=== PATIENT | male | born 2000 | race Caucasian/White ===

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

== ENCOUNTER 2024-11-15 13:30 | Emergency (ER) | payer SELFPAY ==
[2024-11-15] VITALS (7 sets, daily range): BP systolic 106–121; BP diastolic 59–89; PULSE 69–88; RESP 14–16; TEMP 36.4; O2SAT 96–100
--- NOTE | 2024-11-15 14:55 | CTR_ITS ---
PROCEDURE INFORMATION: Exam: CT Head Without Contrast Exam date and time: 11/15/2024 3:00 PM Age: 24 years old Clinical indication: Pain; Patient HX: Headache x 4hrs TECHNIQUE: Imaging protocol: Computed tomography of the head without contrast. Radiation optimization: All CT scans at this facility use at least one of these dose optimization techniques: automated exposure control; mA and/or kV adjustment per patient size (includes targeted exams where dose is matched to clinical indication); or iterative reconstruction. COMPARISON: No relevant prior studies available. RADIATION DOSE METRICS: Total DLP (mGy-cm): 1047.94 FINDINGS: Brain: No definite evidence for acute infarct. Normal enamorado-white matter interfaces. No focal mass lesions. No intra-axial or extra-axial fluid collections, hemorrhage or mass. No mass effect or midline shift. The pineal, sellar, brainstem, cerebellum regions appear grossly unremarkable. Cerebral ventricles: No ventriculomegaly. Paranasal sinuses: Visualized sinuses are unremarkable. No fluid levels. Mastoid air cells: Visualized mastoid air cells are unremarkable without effusion. Bones: Unremarkable. No acute fracture. Soft tissues: Unremarkable. Vasculature: Unremarkable. CT/CT head wo con* [id number] IMPRESSION: No acute intracranial abnormality.
--- NOTE | 2024-11-15 15:12 | ED_ITS ---
HPI - General Adult 2 General: Chief complaint: General Medical Stated complaint: stroke like symptoms Time Seen by Provider: 11/15/24 14:36 Source: patient Mode of arrival: ambulatory Limitations: no limitations History of Present Illness: 24-year-old male states he started havin g a headache 2 hours ago states been a pressure type headache states when he first had a headache he started have some blurred vision also some right sided numbness he states the vision numbness is resolved but his headache has worsened it is currently 9 out of 10 its gradually worsening does have some photophobia no known history of migraines. Associated symptoms: Reports headache(s); Deny chest pain, dyspnea, nausea, rash or vomiting Related Data Home Medications Medication Instructions Recorded Confirmed No Known Home Medications 10/17/21 11/15/24 Allergies Allergy/AdvReac Type Severity Reaction Status Date / Time No Known Allergies Allergy Unverified 10/17/21 11:24 Review of Systems 2 Const: Denies: fever(s), chills, body aches or change in appetite Eyes: Reports: blurry vision ENMT: Denies: throat pain or dental pain Card: Denies: chest pain Resp: Denies: dyspnea GI: Denies: abdominal pain, nausea, vomiting or diarrhea Musc: Denies: neck pain or back pain Skin/Breast: Denies: rash Neuro: Reports: headache(s) and numbness in extremities Physical Exam 2 Const: COMMON NORMALS: no acute distress, patient oriented x3 and healthy appearing HENMT: COMMON NORMALS: normocephalic and atraumatic HEAD & SCALP: n ormocephalic and atraumatic Eye: COMMON NORMALS: Equal, round and reactive pupils present and EOMs intact bilaterally PUPIL: Yes Equal, round and reactive pupils present Neck/C-Spine: COMMON NORMALS: full ROM and supple Chest: COMMONS NORMALS: normal inspection of the chest and normal palpation of entire chest wall Resp: COMMON NORMALS: normal respiratory effort, No retractions, No use of accessory muscles and clear to auscultation bilaterally AUSCULTATION: clear to auscultation bilaterally Cardio: COMMON NORMALS: regular rate, regular rhythm and No murmurs present (Cardio) RATE: regular rate RHYTHM: regular rhythm GI: COMMON NORMALS: Normal to inspection, nondistended, normoactive bowel sounds present, Soft to palpation, non-tender and no masses PALPATION: Yes Soft to palpation Extremity: COMMON NORMALS: normal to inspection and full ROM Neuro: COMMON NORMALS: patient oriented x3, moves all extremities and no focal motor deficits Psych: COMMON NORMALS: mental status grossly normal, Normal thought process present and cooperative THOUGHT PROCESS: Normal thought process present Skin: COMMON NORMALS: no rashes or lesions noted and no wounds GENERAL SKIN EXAM: no rashes or lesions noted Course 2 Vital Signs: Vital signs: Vital Signs Temperature 97.6 F 11/15/24 13:34 Pulse Rate 88 11/15/24 16:19 Respiratory Rate 16 11/15/24 16:43 Blood Pressure 116/65 11/15/24 16:43 Pulse Oximetry 96 11/15/24 16:43 Oxygen Delivery Me thod Room Air 11/15/24 15:00 MDM - General Adult Medical Decision Making Patient presents here with headache is likely migraine headache causing his symptoms he has no signs of stroke he feels much improved here after his headaches resolved no signs of meningitis or subarachnoid hemorrhage she is stable for discharge follow-up PCP return if worsening. Medical Records I reviewed the patient's medical records. Lab Data I reviewed the patient's lab results. 11/15/24 15:50 11/15/24 15:[address] 11/15/24 14:55 IMPRESSION: No acute intracranial abnormality. Laboratory Results WBC 16.35 10^3/uL (3.29-11.43) H 11/15/24 15:50 RBC 5.75 10^6/uL (3.85-5.65) H 11/15/24 15:50 Hgb 17.00 g/dL (11.27-16.99) H 11/15/24 15:50 Hct 49.0 % (37-53) 11/15/24 15:50 MCV 85.2 fl (82-101) 11/15/24 15:50 MCH 29.6 pg (27-33) 11/15/24 15:50 MCHC 34.7 g/dL (30-55) 11/15/24 15:50 RDW 12.4 % (12.1-15.1) 11/15/24 15:50 Plt Count 303 10^3/cmm (157-399) 11/15/24 15:50 MPV 9.5 fL (7.4-10.4) 11/15/24 15:50 Neut % (Auto) 89.7 % 11/15/24 15:50 Lymph % (Auto) 6.4 % 11/15/24 15:50 [place] % (Auto) 3.1 % 11/15/24 15:50 Eos % (Auto) 0.1 % 11/15/24 15:50 Baso % (Auto) 0.3 % 11/15/24 15:50 Neut # (Auto) 14.66 10^3/uL (1.8-7.7) H 11/15/24 15:50 Lymph # (Auto) 1.1 10^3/uL (0.8-4.8) 11/15/24 15:50 [place] # (Auto) 0.5 10^3/uL (0.2-0.9) 11/15/24 15:50 Eos # (Auto) 0.0 10^3/uL (0.0-0.8) 11/15/24 15:50 Baso # (Auto) 0.1 10^3/uL (0.0-0.1) 11/15/24 15:50 Nucleated RBC % (auto) 0 % 11/15/24 15:50 Nucleated RBCs # 0.0 /100WBC 11/15/24 15:50 Sodium 140 mmol/L (136-145) 11/15/24 15:50 Potassium 3.7 mmol/L (3.5-5.1) 11/15/24 15:50 Chloride 101 mmol/L (98-107) 11/15/24 15:50 Carbon Dioxide 26 mmol/L (22-29) 11/15/24 15:50 Anion Gap 16.7 (5-19) 11/15/24 15:50 BUN 14 mg/dL (6-20) 11/15/24 15:50 Creatinine 0.9 mg/dL (0.7-1.2) 11/15/24 15:50 GFR Calculation 105.5 mL/min (90-130) 11/15/24 15:50 Glucose 126 mg/dL (65-115) H 11/15/24 15:50 Calculated Osmolality 292 mOsm/kg (285-295) 11/15/24 15:50 Calcium 9.9 mg/dL (8.5-10.5) 11/15/24 15:50 All radiology interpretation(s) finalized by discharge Discharge Plan Discharge Patient Disposition: Home Clinical Impression: Headache Condition: Stable Prescriptions: No Action No Known Home Medications Discharge Orders: Discharge ED (Routine); Ordered 11/15/24 Ordered By: Kareen Barroso Referrals: Julia Gomez [Primary Care Provider] - Discharge Diet: Advance as tolerated Discharge Activity: Resume usual activity Patient Instructions: Migraine Headache (ED) Coding Level of Care Code ED Ethylbenzene Converter Helper for Chg Yasir NIH stroke score NIHSS Level Of Consciousness - 1a: 0 Level Of Consciousness Questions - 1b: Both Correct Level Of Consciousness Commands - 1c: Both Correct Best Gaze - 2: Normal Visual [place] - 3: No Visual Loss Facial Palsy - 4: Normal Motor Arm Right - 5: No Drift Motor Arm Left - 5: No Drift Motor Leg Right - 6: No Drift Motor Leg Left - 6: No Drift Limb Ataxia - 7: Absent Sensory - 8: Normal Best Language - 9: No Aphasia Dysarthia - 10: Normal Extinction And Inattention - 11: 0 Score Total Score: 0
[2024-11-15] MEDS: metoclopramide 5 mg/mL SDV 2 mL 10 MG IVP (15:37)
[2024-11-15] MEDS: diphenhydrAMINE 50 mg/mL SDV 1mL IVP (15:37)
[2024-11-15 15:58] LABS: Basophils # 0.1 10^3/uL (0.0-0.1); Basophils % 0.3 %; Eosinophils % 0.1 %; Lymphocytes # 1.1 10^3/uL (0.8-4.8); Lymphocytes % 6.4 %; Mean Corpuscular HGB Conc 34.7 g/dL (30-55); Mean Corpuscular Hemoglobin 29.6 pg (27-33); Mean Corpuscular Volume 85.2 fl (82-101); Mean Platelet Volume 9.5 fL (7.4-10.4); Monocytes # 0.5 10^3/uL (0.2-0.9); Monocytes % 3.1 %; Neutrophils # 14.66 10^3/uL (1.8-7.7); Neutrophils % 89.7 %; Nucleated Red Blood Cells % 0 %; Platelet Count 303 10^3/cmm (157-399); Red Blood Count 5.75 10^6/uL (3.85-5.65); Red Cell Distribution Width 12.4 % (12.1-15.1); White Blood Count 16.35 10^3/uL (3.29-11.43)
[2024-11-15 16:47] LABS: Anion Gap 16.7 (5-19); Blood Urea Nitrogen 14 mg/dL (6-20); Calcium 9.9 mg/dL (8.5-10.5); Carbon Dioxide 26 mmol/L (22-29); Chloride 101 mmol/L (98-107); Creatinine Clr Calc Pharmacy 126.0145; Glomerular Filtration Rate 105.5 mL/min (90-130); Glucose 126 mg/dL (65-115); Osmolality Calculated 292 mOsm/kg (285-295); Potassium 3.7 mmol/L (3.5-5.1); Sodium 140 mmol/L (136-145)
== END 2024-11-15 17:33 | disposition home or self-care (01) ==
PROVIDERS: Emergency Provider Emergency Medicine; PCP Pediatrics
DX: R51.9 Headache, unspecified (principal)
CPT/HCPCS: 36415; 70450; 80048; 85025; 96374; 96375; 99285; J1200; J2765